=== PATIENT | male | born 1965 ===

== ENCOUNTER 2021-06-06 08:14 | Outpatient (CLI) | payer OTHER | END 2021-06-06 09:41 | disposition home or self-care (01) | LOC: SONOGRAMA 08:14 | PROVIDERS: ATTEND Pediatrics | DX: D34 Benign neoplasm of thyroid gland (principal); E06.3 Autoimmune thyroiditis; E04.1 Nontoxic single thyroid nodule ==

== ENCOUNTER 2022-04-27 06:35 | Outpatient (CLI) | payer OTHER | END 2022-04-27 06:36 | disposition home or self-care (01) | LOC: LAB 06:35 | PROVIDERS: ATTEND Urology | DX: R97.21 Rising PSA following treatment for malignant neoplasm of prostate (principal); N20.0 Calculus of kidney ==